=== PATIENT | male | born 1990 | race American Indian/Alaskan Native ===

== ENCOUNTER 2018-02-08 09:32 | Emergency (ER) | payer SELFPAY ==
[2018-02-08 09:32] VITALS: BMI 19.1
[2018-02-08 09:37] VITALS: BP 131/87; TEMP 98.9; O2SAT 99
[2018-02-08 10:31] VITALS: PULSE 96; RESP 19
--- NOTE | 2018-02-08 10:48 | ED PDOC ---
HPI: Back Time Seen by Provider: 02/08/18 09:57 Chief Complaint (Nursing): Back Pain History Per: Patient History/Exam Limitations: no limitations Onset/Duration Of Symptoms: Days (x 2) Current Symptoms Are (Timing): Constant Exacerbating Factor(s): Other (bending over) Additional Complaint(s): 27-year-old male presents to ED with midback pain going on for 2 days. Pt denies taking any medications for pain. Pt reports pain has been constant since yesterday and worsens when bending over. 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 Reports similar pain for many years on and off.Pt reports he does not go to pain management since back pain is not constant. Pt reports he used to go to physical therapy in the past and took over the counter medications such as motrin and tylenol as needed. Pt reports he can't go to work today due to pain. (-) leg pain, (-) weakness, (-) numbness. PMD: Provider TBD Past Medical History Reviewed: Historical Data, Nursing Documentation, Vital Signs Vital Signs: Last Vital Signs Temp 98.9 F 02/08/18 09:36 Pulse 96 H 02/08/18 10:30 Resp 19 02/08/18 10:30 BP 131/87 02/08/18 09:36 Pulse Ox 99 02/08/18 10:30 - Medical History PMH: No Chronic Diseases - Surgical History Surgical History: No Surg Hx - Family History Family History: States: Unknown Family Hx - Immunization History Hx Tetanus Toxoid Vaccination: No Hx Influenza Vaccination: No Hx Pneumococcal Vaccination: No - Home Medications Home Medications: Ambulatory Orders Medication Instructions Recorded Cyclobenzaprine [Cyclobenzaprine 10 mg PO TID #15 tab 02/08/18 HCl] Naproxen 500 mg PO BID #20 tab 02/08/18 - Allergies Allergies/Adverse Reactions: Allergies Allergy/AdvReac Type Severity Reaction Status Date / Time No Known Allergies Allergy Verified 02/08/18 09:49 Review of Systems ROS Statement: Except As Marked, All Systems Reviewed And Found Negative Musculoskeletal: Positive for: Back Pain (midback pain). Negative for: Leg Pain Neurological: Negative for: Weakness, Numbness Physical Exam - Reviewed Nursing Documentation Reviewed: Yes Vital Signs Reviewed: Yes - Physical Exam Appears: Positive for: Well (Resting comfortably), No Acute Distress Head Exam: Positive for: ATRAUMATIC, NORMAL INSPECTION, NORMOCEPHALIC Eye Exam: Positive for: Normal appearance, EOMI, PERRL Neck: Positive for: Normal Cardiovascular/Chest: Positive for: Regular Rate, Rhythm Respiratory: Positive for: Normal Breath Sounds. Negative for: Respiratory Distress Gastrointestinal/Abdominal: Positive for: Normal Exam, Soft. Negative for: Tenderness Back: Positive for: Other (Mid tenderness to paraspinal midback) Extremity: Positive for: Normal ROM Neurologic/Psych: Positive for: Alert, Oriented, Gait (normal) - ECG O2 Sat by Pulse Oximetry: 99 (RA) Pulse Ox Interpretation: Normal - Progress Re-evaluation Time: 12:00 Condition: Re-examined, Improved Medical Decision Making Medical Decision Making: Time: 10:28 Impression(s): [id number] back Pain Differentials, but not limited to: Muscle Spasm Plan: - Flexeril 10 mg PO - Motrin Tab Upon provider evaluation patient is medically stable, and requires no further treatment in the ED at this time. Patient will be discharged with Rx for Cyclobenzaprine HCl. Counseling was provided and all questions were answered regarding diagnosis and need for follow up with PCP in 2-3 days. There is agreement to discharge plan. Return if symptoms persist or worsen. Scribe Attestation: Documented by Nicholas Lyons, acting as a scribe for Ileana Martinez MD. Provider Scribe Attestation: All medical record entries made by the Scribe were at my direction and personally dictated by me. I have reviewed the chart and agree that the record accurately reflects my personal performance of the history, physical exam, medical decision making, and the department course for this patient. I have also personally directed, reviewed, and agree with the discharge instructions and disposition. Disposition - Clinical Impression Clinical Impression: Back pain - Patient ED Disposition Is Patient to be Admitted: No Doctor Will See Patient In The: Office Counseled Patient/Family Regarding: Studies Performed, Diagnosis, Need For Followup - Disposition [facility]errals: [facility] [Outside] Disposition: Routine/Home Disposition Time: 12:11 Condition: GOOD Additional Instructions: Take your medications as instructed. Follow up with your PCP in 2-3 days. Prescriptions: Cyclobenzaprine [Cyclobenzaprine HCl] 10 mg PO TID #15 tab Naproxen 500 mg PO BID #20 tab Instructions: Low Back Pain (DC)
== END 2018-02-08 12:23 | disposition home or self-care (01) ==
LOC: H.ER 09:32
DX: M54.9 Dorsalgia, unspecified (principal); G89.29 Other chronic pain

== ENCOUNTER 2018-06-03 05:03 | Emergency (ER) | payer BC ==
[2018-06-03 05:03] VITALS: BMI 19.1
[2018-06-03] MEDS ORDERED: Lidocaine 5% Patch TD STA (06:31)
--- NOTE | 2018-06-03 07:14 | ED PDOC ---
HPI: Back Time Seen by Provider: 06/03/18 06:07 Chief Complaint (Nursing): Back Pain History Per: Patient Onset/Duration Of Symptoms: Hrs Severity: None Additional Complaint(s): Patient has history of back problems, states he picked up a heavy suitcase yesterday and is now having upper L back pain. No weakness, numbness, loss of bladder or bowel function. Past Medical History Reviewed: Historical Data, Nursing Documentation, Vital Signs Vital Signs: Last Vital Signs Temp 98.7 F 06/03/18 05:14 Pulse 80 06/03/18 05:14 Resp 17 06/03/18 05:14 BP 127/83 06/03/18 05:14 Pulse Ox 98 06/03/18 05:14 - Medical History PMH: No Chronic Diseases - Family History Family History: States: Unknown Family Hx - Immunization History Hx Tetanus Toxoid Vaccination: No Hx Influenza Vaccination: No Hx Pneumococcal Vaccination: No - Home Medications Home Medications: Ambulatory Orders Medication Instructions Recorded Cyclobenzaprine [Cyclobenzaprine 10 mg PO TID #15 tab 02/08/18 HCl] Naproxen 500 mg PO BID #20 tab 02/08/18 Cyclobenzaprine [Cyclobenzaprine 10 mg PO BID #15 tab 06/03/18 HCl] Lidocaine 1 each TP DAILY #10 adh..patch 06/03/18 - Allergies Allergies/Adverse Reactions: Allergies Allergy/AdvReac Type Severity Reaction Status Date / Time No Known Allergies Allergy Verified 02/08/18 09:49 Review of Systems ROS Statement: Except As Marked, All Systems Reviewed And Found Negative Musculoskeletal: Positive for: Back Pain Physical Exam - Reviewed Nursing Documentation Reviewed: Yes Vital Signs Reviewed: Yes - Physical Exam Appears: Positive for: Well, Non-toxic, No Acute Distress Head Exam: Positive for: ATRAUMATIC, NORMAL INSPECTION, NORMOCEPHALIC Skin: Positive for: Normal Color, Warm, DRY Eye Exam: Positive for: EOMI, Normal appearance, PERRL ENT: Positive for: Normal ENT Inspection Neck: Positive for: Normal, Painless ROM Cardiovascular/Chest: Positive for: Regular Rate, Rhythm Respiratory: Positive for: CNT, Normal Breath Sounds Gastrointestinal/Abdominal: Positive for: Normal Exam, Soft Back: Positive for: Muscle Spasm (L upper thoracic, paravertebral) Extremity: Positive for: Normal ROM Neurologic/Psych: Positive for: Alert, Oriented - ECG O2 Sat by Pulse Oximetry: 98 Pulse Ox Interpretation: Normal Medical Decision Making Medical Decision Making: Upper back strain Has some relief after aleve Will recommend muscle relaxant Very well appearing Disposition - Clinical Impression Clinical Impression: Back pain - Patient ED Disposition Is Patient to be Admitted: No - Disposition Referrals: [facility] [Outside] Disposition: Routine/Home Disposition Time: 07:14 Condition: IMPROVED Prescriptions: Cyclobenzaprine [Cyclobenzaprine HCl] 10 mg PO BID #15 tab Lidocaine 1 each TP DAILY #10 adh..patch Instructions: Upper Back Pain
[2018-06-03 07:58] VITALS: BP 116/72; PULSE 65; RESP 16; TEMP 99; O2SAT 100
== END 2018-06-03 07:30 | disposition home or self-care (01) ==
LOC: H.ER 05:03
DX: M54.9 Dorsalgia, unspecified (principal); X50.0XXA Overexertion from strenuous movement or load, initial encounter

== ENCOUNTER 2018-11-11 16:47 | Emergency (ER) | payer BC ==
[2018-11-11 16:47] VITALS: BMI 19.1
[2018-11-11 17:14] VITALS: BP 124/76; PULSE 87; RESP 16; TEMP 98.4; O2SAT 100
--- NOTE | 2018-11-11 17:34 | ED PDOC ---
HPI: Back Time Seen by Provider: 11/11/18 17:21 Chief Complaint (Nursing): Back Pain Chief Complaint (Provider): back pain History Per: Patient (28 y/o male here with upper and lower back spasms intermittently ongoing worse x 2 days with heavy lifting at work. Took 600 i buprofen prior to ED arrival. Was advised by work to be evaluated.) Past Medical History Reviewed: Historical Data, Nursing Documentation, Vital Signs Vital Signs: Last Vital Signs Temp 98.4 F 11/11/18 17:12 Pulse 87 11/11/18 17:12 Resp 16 11/11/18 17:12 BP 124/76 11/11/18 17:12 Pulse Ox 100 11/11/18 17:12 - Family History Family History: States: Unknown Family Hx - Immunization History Hx Tetanus Toxoid Vaccination: No Hx Influenza Vaccination: No Hx Pneumococcal Vaccination: No - Home Medications Home Medications: Ambulatory Orders Medication Instructions Recorded Cyclobenzaprine [Cyclobenzaprine 10 mg PO TID #15 tab 02/08/18 HCl] Naproxen 500 mg PO BID #20 tab 02/08/18 Cyclobenzaprine [Cyclobenzaprine 10 mg PO BID #15 tab 06/03/18 HCl] Lidocaine 1 each TP DAILY #10 adh..patch 06/03/18 Ibuprofen [Motrin] 600 mg PO Q8 PRN #21 tab 11/11/18 diaZEpam [Valium] 5 mg PO Q8 PRN #3 tab 11/11/18 - Allergies Allergies/Adverse Reactions: Allergies Allergy/AdvReac Type Severity Reaction Status Date / Time No Known Allergies Allergy Verified 11/11/18 17:11 Review of Systems ROS Statement: Except As Marked, All Systems Reviewed And Found Negative Musculoskeletal: Positive for: Back Pain Physical Exam - Reviewed Nursing Documentation Reviewed: Yes Vital Signs Reviewed: Yes - Physical Exam Appears: Positive for: Well, Non-toxic, No Acute Distress Head Exam: Positive for: ATRAUMATIC, NORMAL INSPECTION, NORMOCEPHALIC Skin: Positive for: Normal Color, Warm, DRY Eye Exam: Positive for: EOMI, Normal appearance, PERRL ENT: Positive for: Normal ENT Inspection Neck: Positive for: Normal, Painless ROM Cardiovascular/Chest: Positive for: Regular Rate, Rhythm Respiratory: Positive for: CNT, Normal Breath Sounds Gastrointestinal/Abdominal: Positive for: Normal Exam, Soft Back: Positive for: Normal Inspection, Other (mild upper parathoracic and paralumbar tenderness described). Negative for: Vertebral Tenderness Extremity: Positive for: Normal ROM Neurological/Psych: Positive for: Awake, Alert, Normal Tone - ECG O2 Sat by Pulse Oximetry: 100 - Progress ED Course And Treament: [facility] REPORT REVIEWED. NO NARCOTIC RX NOTED. Disposition - Clinical Impression Clinical Impression: Back strain - Patient ED Disposition Is Patient to be Admitted: No - Disposition Referrals: [facility] [Outside] Disposition: Routine/Home Disposition Time: 17:34 Condition: FAIR Prescriptions: diaZEpam [Valium] 5 mg PO Q8 PRN #3 tab PRN Reason: Muscle Spasm Ibuprofen [Motrin] 600 mg PO Q8 PRN #21 tab PRN Reason: Pain, Moderate (4-7) Instructions: Low Back Pain (DC), Upper Back Pain (DC) Forms: [facility] ED School/Work Excuse
== END 2018-11-11 17:53 | disposition home or self-care (01) ==
LOC: H.ER 16:47
DX: S39.012A Strain of muscle, fascia and tendon of lower back, initial encounter (principal); X50.9XXA Other and unspecified overexertion or strenuous movements or postures, initial encounter; Y99.0 Civilian activity done for income or pay